=== PATIENT | male | born 1950 | race Caucasian/White ===

== ENCOUNTER 2019-06-18 19:18 | Emergency (ER) | payer MEDICARE, OTHER ==
[~2019-06-18] VITALS: Ht 182.9 cm; Wt 80.7 kg
[~2019-06-18 19:18] MED LIST: ALPR0.255; LEVO250T59; METF-440; MIRT30TA7; SIMV-49; TRAM50TA2
--- NOTE | 2019-06-18 19:26 | NUR ---
PT BIBSELF C/O R LEG PAIN FOLLOWING SKI FALL X 1 WEEK, HEMATOMA NOTED. pt awake, alert, -sob, nad noted, vss ,pending md mo
--- NOTE | 2019-06-18 20:06 | NUR ---
Patient discharged to home in stable condition. Written and verbal after care instructions given. Patient verbalizes understanding of instruction. ambulatory with a steady gait noted.
[2019-06-18 20:08] VITALS: BP 143/88
== END 2019-06-18 20:09 | disposition home or self-care (01) ==
LOC: ER 19:21
DX: S80.11XA Contusion of right lower leg, initial encounter (principal); I10 Essential (primary) hypertension; E11.9 Type 2 diabetes mellitus without complications; Z79.899 Other long term (current) drug therapy; Z88.5 Allergy status to narcotic agent; Z88.9 Allergy status to unspecified drugs, medicaments and biological substances; Z88.8 Allergy status to other drugs, medicaments and biological substances; W18.39XA Other fall on same level, initial encounter; Y93.89 Activity, other specified; Y92.89 Other specified places as the place of occurrence of the external cause; Y99.8 Other external cause status
CPT/HCPCS: 93971-TC

== ENCOUNTER 2022-10-22 20:10 | Emergency (ER) | payer MEDICARE ==
[~2022-10-22 20:10] MED LIST changes: +MIRT-91; -MIRT30TA7
--- NOTE | 2022-10-22 20:23 | NUR ---
CALLED TO TRIAGE , NO RESPONSE
--- NOTE | 2022-10-22 20:58 | NUR ---
CALLED TO TRIAGE, NO RESPONSE
== END 2022-10-22 21:34 | disposition left against medical advice (07) ==
LOC: ER 20:19
DX: R06.02 Shortness of breath (principal); Z53.21 Procedure and treatment not carried out due to patient leaving prior to being seen by health care provider